=== PATIENT | male | born 1990 | race Two or more races ===

== ENCOUNTER 2020-09-20 13:30 | Emergency (ER) | payer OTHER ==
[~2020-09-20] VITALS: Ht 190.5 cm; Wt 67.1 kg
--- NOTE | 2020-09-20 14:15 | NUR ---
BREAK RN: MD AT BEDSIDE. PT REMAINS IN BED AND ON ALL MONITORING EQUIPMENT. CALL LIGHT IN REACH. AWAITING ORDERS.
[2020-09-20 14:18] VITALS: BP 117/69
[2020-09-20] MEDS ORDERED: L.E.T SOLUTION TP ONE ×2 (14:20→14:30)
--- NOTE | 2020-09-20 14:26 | NUR ---
X RAY AT BEDSIDE.
--- NOTE | 2020-09-20 14:29 | NUR ---
PT TO CT. Cathleen.E.T. ON AT 1981
[2020-09-20] MEDS ORDERED: SODIUM CHLORIDE FLUSH 10ML SYR IVF ONE (14:30)
[2020-09-20] MEDS ORDERED: DIPH,PERTUSS(ACELL),TET VAC/PF 0.5 ML IM-VACC ONE ×2 (14:30→15:17)
[2020-09-20 14:35] LABS: BASOPHILS % (AUTO) 0 % (0-1); EOSINOPHILS % (AUTO) 0 % (1-7); LYMPHOCYTES % (AUTO) 11 % (22-44); MEAN CORPUSCULAR HEMOGLOBIN 30.7 pg (27.5-34.5); MEAN CORPUSCULAR HGB CONC 34.3 g/dL (33.2-36.2); MEAN PLATELET VOLUME 8.4 fL (7.4-10.4); MONOCYTES % (AUTO) 5 % (2-9); NEUTROPHILS % (AUTO) 84 % (42-75); PLATELET COUNT 233 x10^3/uL (130-400); RED BLOOD COUNT 5.46 x10^6/uL (4.38-5.82)
[2020-09-20 14:36] LABS: MD NO
--- NOTE | 2020-09-20 14:39 | NUR ---
PT RETURNS FROM CT
[2020-09-20 14:44] LABS: ALANINE AMINOTRANSFERASE 29 U/L (12-78); ALBUMIN 4.4 g/dL (3.4-5.0); ANION GAP 7 mmol/L (5-15); CALCIUM 9.5 mg/dL (8.5-10.1); CHLORIDE 104 mmol/L (98-107); CREATININE 1.18 mg/dL (0.7-1.3)
[2020-09-20 14:46] LABS: ALKALINE PHOSPHATASE 66 U/L (45-117); BILIRUBIN,TOTAL 1.5 mg/dL (0.2-1.0); TOTAL PROTEIN 7.8 g/dL (6.4-8.2)
--- NOTE | 2020-09-20 15:20 | NUR ---
PA AT BS. PT TOLERATED COREEN WELL. NAD NOTED
--- NOTE | 2020-09-20 15:30 | NUR ---
PT AMBULATED TO BR WITH UPRIGHT STEADY GAIT. RETURN WITH NO INCIDENCE
[2020-09-20 15:43] LABS: MICROSCOPIC AUTO
--- NOTE | 2020-09-20 16:56 | NUR ---
Patient given discharge instructions and they have confirmed that they understand the instructions. Patient ambulatory with steady gait.
== END 2020-09-20 16:58 | disposition home or self-care (01) ==
LOC: ED 16:52
DX: S01.91XA Laceration without foreign body of unspecified part of head, initial encounter (principal); R41.82 Altered mental status, unspecified; R00.0 Tachycardia, unspecified; R00.9 Unspecified abnormalities of heart beat; R55 Syncope and collapse; X58.XXXA Exposure to other specified factors, initial encounter; Y93.89 Activity, other specified; Y92.89 Other specified places as the place of occurrence of the external cause; Y99.8 Other external cause status
CPT/HCPCS: 12031; 36415; 70450; 71045; 80053; 81001; 85025; 90471; 90715; 93005; 99285

== ENCOUNTER 2020-09-24 07:51 | Emergency (ER) | payer BC, OTHER ==
[~2020-09-24] VITALS: Ht 188 cm; Wt 67.7 kg
--- NOTE | 2020-09-24 07:56 | NUR ---
TRIAGE DONE BY THIS RN
--- NOTE | 2020-09-24 08:39 | NUR ---
Pt arrived complaining of fever, nausea, and chills that started this AM. He believes that it could be related to a possible seizure that occured on 09/20/20, he was seen at this ER after seizure like activity. Pt is resting in bed with warm blanket, connect to all monitors, NADN. Pt asking questions like "could these be COVID symptoms" and "is this related to my seizure". Pt also stated "I splashed blood on my friends at work and I feel like I need to get my blood tested so they know they're okay". Pt reassured by this RN that he will be further evaluated here.
[2020-09-24 09:29] LABS: RAPID INFLUENZA A Negative (Negative); RAPID INFLUENZA B Negative (Negative)
[2020-09-24] MEDS ORDERED: ONDANSETRON ODT 4 MG ONE (10:23)
--- NOTE | 2020-09-24 10:26 | NUR ---
pt resting in bed and medicated per AUG, no other requests at this time
[2020-09-24] MEDS ORDERED: ONDANSETRON ODT 4 MG PO ONE (10:30)
[2020-09-24 10:48] VITALS: BP 107/74
== END 2020-09-24 10:50 | disposition home or self-care (01) ==
LOC: ED 08:47
DX: S06.2X0A Diffuse traumatic brain injury without loss of consciousness, initial encounter (principal); B34.9 Viral infection, unspecified; R55 Syncope and collapse; Z20.822 Contact with and (suspected) exposure to COVID-19; W18.30XA Fall on same level, unspecified, initial encounter; Y93.89 Activity, other specified; Y92.89 Other specified places as the place of occurrence of the external cause; Y99.8 Other external cause status
CPT/HCPCS: 70450; 87400; 99284; Q0162; U0003